=== PATIENT | female | born 1985 | race Caucasian/White ===

== ENCOUNTER 2018-03-26 14:30 | Emergency (ER) | payer BC, MEDICAID ==
[2018-03-26] MEDS ORDERED: Sodium Chloride 0.9% 800 ML IV ONE (15:05)
[2018-03-26] MEDS ORDERED: Sodium Chloride 0.9% 10 ML Syringe FLUSH PRN (15:05)
[2018-03-26] MEDS ORDERED: Sodium Chloride 0.9% 1,000 ML IV ONE (15:05)
[2018-03-26] MEDS ORDERED: Acetaminophen 325 MG Tab PO ONE (15:08)
--- NOTE | 2018-03-26 16:33 | EDM.PDOC ---
ED HPI GENERAL MEDICAL PROBLEM - General Chief Complaint: General Stated Complaint: SENT FROM WALK IN ABNORMAL BLOOD WORK Time Seen by Provider: 03/26/18 15:12 Source of Information: Reports: Patient History Limitations: Reports: No Limitations - History of Present Illness INITIAL COMMENTS - FREE TEXT/NARRATIVE: Patient is a 32-year-old female who was evaluated at the [facility] today with concerns of being septic. She had elevated white blood count, fever, and with orthostatic. She was instructed to come to the ED for further evaluation of fever of unknown etiology. With admission patient states she feels mildly dizzy with standing. This has been present ever since being discharged from the hospital one week ago after delivering a baby. During delivery patient spiked a fever 101.7. She was placed on antibiotics while inpatient and on discharge for 3 days. Her infant spent sometime in the NICU and was discharged home with no concerns. She was found to be anemic during her hospitalization. She's been started on iron supplements. She did suffer a grade 2 tear and states the bleeding has trended downward. No concerning findings noted. She does have some lower abdominal discomfort along the suprapubic region. No change since being discharged home. Denies any chest pain, shortness breath, upper respiratory symptoms, cough, nausea vomiting, nuchal rigidity, foul odor or abnormal discharge from her vagina, or any additional complaints. She has a history of chlamydia and gonorrhea many years ago. She was tested for group B came back negative. 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: Other (see below) Other 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: none Lower Abdomen Pain Score (Numeric/FACES): 1 - Related Data Allergies Allergy/AdvReac Type Severity Reaction Status Date / Time No Known Allergies Allergy Verified 03/26/18 14:52 Home Meds: Home Meds Cephalexin [Keflex] 500 mg PO TID #21 capsule 03/26/18 [Rx] Ferrous Sulfate [Iron] 325 mg PO DAILY 03/26/18 [History] [place]-3/DHA/Epa/Fish Oil [[place] 3 500 Softgel] 1 tab PO DAILY 03/26/18 [History] PNV95/Ferrous Fumarate/FA [ Tablet] 1 tab PO DAILY 03/26/18 [History] Ranitidine [Zantac] 150 mg PO DAILY 03/26/18 [History] Past Medical History Gastrointestinal History: Reports: GERD Genitourinary History: Reports: UTI, Recurrent RESEARCH PHYSICIAN History: Reports: Other (See Below) Other RESEARCH PHYSICIAN History: STD;clamidya,ghonnrhea Social & Family History - Tobacco Use Smoking Status *Q: Never Smoker - Caffeine Use Caffeine Use: Reports: Tea - Recreational Drug Use Recreational Drug Use: No ED ROS GENERAL - Review of Systems Review Of Systems: ROS reveals no pertinent complaints other than HPI. ED EXAM, GENERAL - Physical Exam Exam: See Below Exam Limited By: No Limitations General Appearance: Alert, WD/WN, No Apparent Distress Ears: Hearing Grossly Normal Nose: Normal Inspection Throat/Mouth: Normal Voice, No Airway Compromise Neck: Normal Inspection, Supple Respiratory/Chest: No Respiratory Distress, Lungs Clear, Normal Breath Sounds, No Accessory Muscle Use Cardiovascular: Normal Peripheral Pulses, Regular Rate, Rhythm, No Murmur Peripheral Pulses: 2+: Radial (R) GI/Abdominal: Normal Bowel Sounds, Soft, No Organomegaly, No Distention, Tender (suprapubic region) Rectal (Female) Exam: Normal Exam, Normal Rectal Tone, Heme - Stool Back Exam: Normal Inspection. No: CVA Tenderness (L), CVA Tenderness (R) Extremities: Normal Inspection Neurological: Alert, Oriented, CN II-XII Intact, Normal Cognition, No Motor/ Sensory Deficits Psychiatric: Normal Affect, Normal Mood Skin Exam: Warm, Dry, Intact, Normal Color, No Rash Course - Vital Signs Last Recorded V/S: Last Vital Signs Temp 100.3 F 03/26/18 15:27 Pulse 102 H 03/26/18 14:57 Resp 20 03/26/18 14:57 BP 119/85 03/26/18 14:57 Pulse Ox 98 03/26/18 14:57 - Orders/Labs/Meds Orders: Active Orders 24 hr Category Date Time Status Orthostatic Vital Signs [RC] ASDIRECTED Care 03/26/18 16:43 Active Peripheral IV Care [RC] . DIRECTED Care 03/26/18 15:06 Active CULTURE BLOOD [BC] Stat Lab 03/26/18 15:18 Received CULTURE BLOOD [BC] Stat Lab 03/26/18 15:21 Received CULTURE URINE [RM] Stat Lab 03/26/18 15:25 Received Sodium Chloride 0.9% [Saline Flush] Med 03/26/18 15:05 Active 10 ml FLUSH ASDIRECTED PRN Blood Culture x2 Reflex Set [OM.PC] Stat Oth 03/26/18 15:05 Ordered Peripheral IV Insertion Adult [OM.PC] Routine Oth 03/26/18 15:05 Ordered Medication Orders Sodium Chloride (Saline Flush) 10 ml FLUSH ASDIRECTED PRN PRN Reason: Keep Vein Open Last Admin: 03/26/18 15:27 Dose: 10 ml Labs: Laboratory Tests 03/26/18 03/26/18 03/26/18 Range/Units 15:18 15:18 15:25 WBC 12.37 H (3.98-10.04) K/mm3 RBC 4.42 (3.98-5.22) M/mm3 Hgb 12.3 (11.2-15.7) gm/L Hct 37.5 (34.1-44.9) % MCV 84.8 (79.4-94.8) fl MCH 27.8 (25.6-32.2) pg MCHC 32.8 (32.2-35.5) g/dl RDW Std Deviation 39.8 (36.4-46.3) fL Plt Count 365 (182-369) K/mm3 MPV 9.3 L (9.4-12.3) fl Neutrophils % (Manual) 83 H (40-60) % Band Neutrophils % 1 (0-10) % Lymphocytes % (Manual) 11 L (20-40) % Atypical Lymphs % 0 % Monocytes % (Manual) 4 (2-10) % Eosinophils % (Manual) 1 (0.7-5.8) % Basophils % (Manual) 0 L (0.1-1.2) Toxic Granulation 1+ slight Platelet Estimate Adequate Plt Morphology Comment Normal RBC Morph Comment Normal Sodium 137 (136-145) mEq/L Potassium 3.5 (3.5-5.1) mEq/L Chloride 104 (98-107) mEq/L Carbon Dioxide 25 (21-32) mEq/L Anion Gap 11.5 (5-15) BUN 18 (7-18) mg/dL Creatinine 0.8 (0.55-1.02) mg/dL Est Cr Clr Drug Dosing 94.85 mL/min Estimated GFR (MDRD) > 60 (>60) mL/min BUN/Creatinine Ratio 22.5 H (14-18) Glucose 102 (74-106) mg/dL Calcium 8.5 (8.5-10.1) mg/dL Total Bilirubin 0.2 (0.2-1.0) mg/dL AST 11 L (15-37) U/L ALT 22 (14-59) U/L Alkaline Phosphatase 143 H (46-116) U/L C-Reactive Protein 1.9 H* (<1.0) mg/dL Total Protein 6.8 (6.4-8.2) g/dl Albumin 2.8 L (3.4-5.0) g/dl Globulin 4.0 gm/dL Albumin/Globulin Ratio 0.7 L (1-2) Urine Color Yellow (Yellow) Urine Appearance Clear (Clear) Urine pH 7.0 (5.0-8.0) Ur Specific [place] 1.020 (1.005-1.030) Urine Protein Negative (Negative) Urine Glucose (UA) Negative (Negative) Urine Ketones Negative (Negative) Urine Occult Blood 1+ H (Negative) Urine Nitrite Negative (Negative) Urine Bilirubin Negative (Negative) Urine Urobilinogen 0.2 (0.2-1.0) Ur Leukocyte Esterase 1+ H (Negative) Urine RBC 0-5 (0-5) /hpf Urine WBC 5-10 H (0-5) /hpf Ur Epithelial Cells 0-5 (0-5) /hpf Urine Bacteria Few (FEW) /hpf Urine Mucus Moderate H (FEW) /hpf Meds: Medications Generic Name Dose Route Start Last Admin Trade Name Shay PRN Reason Stop Dose Admin Sodium Chloride 10 ml 03/26/18 15:05 03/26/18 15:27 Saline Flush FLUSH 10 ml ASDIRECTED PRN Administration Keep Vein Open Discontinued Medications Generic Name Dose Route Start Last Admin Trade Name Freq PRN Reason Stop Dose Admin Acetaminophen 650 mg 03/26/18 15:08 03/26/18 15:27 Tylenol PO 03/26/18 15:09 650 mg ONETIME ONE Administration Cephalexin 500 mg 03/26/18 16:36 03/26/18 17:00 Keflex PO 03/26/18 16:37 500 mg ONETIME ONE Administration Sodium Chloride 1,000 mls @ 999 mls/hr 03/26/18 15:05 03/26/18 15:26 Normal Saline IV 03/26/18 16:05 999 mls/hr ONETIME ONE Administration Sodium Chloride 800 mls @ 999 mls/hr 03/26/18 15:05 03/26/18 16:33 Normal Saline IV 03/26/18 15:53 999 mls/hr .BOLUS ONE Administration - Re-Assessments/Exams Free Text/Narrative Re-Assessment/Exam: IV was established with 1.8 L of normal saline IV fluid bolus. Tylenol 650 mg by mouth. Initial labs and studies include: CBC, chem 14, CRP, UA, and blood cultures 2 Hemoglobin was 9.2 today at [place]. Hemoccult test was negative. Labs obtained today reviewed: Sodium 137, potassium 3.5, creatinine 0.8, alk phosphatase 143, CRP mildly elevated at 1.9. White blood count also count 12.37 , hemoglobin normal. N% 83 with no left shift. UA positive for 1+ blood, leukocyte esterase 1+, urine wbc's 5-10, urine mucus moderate. Urine culture has been obtained. Orthostatic vitals on recheck after IVF's. IVF's are in. Patients vitals have improved. She is ready to be discharged home. Departure - Departure Time of Disposition: 16:36 Disposition: Home, Self-Care 01 Condition: Good Clinical Impression: Dehydration UTI (urinary tract infection) Qualifiers: Urinary tract infection type: site unspecified Hematuria presence: with hematuria Qualified Code(s): N39.0 - Urinary tract infection, site not specified Anemia Qualifiers: Anemia type: unspecified type Qualified Code(s): D64.9 - Anemia, unspecified - Discharge Information Prescriptions: Cephalexin [Keflex] 500 mg PO TID #21 capsule Instructions: Antibiotic Medicine, Adult, [id number], Anemia, Dehydration, Adult, [id number], Urinary Tract Infection, Adult Referrals: Marquise Adams MD [Primary Care Provider] - Forms: ED Department Discharge Additional Instructions: Vital signs obtain [facility] indicated you were orthostatic. This means you were volume depleted. Temperature on examination was 100.1. You were administerd almost 2L's of IVF's during evaluation. Blood work obtained today here at the E.D. revealed only slightly elevated WBC. CMP was essentially normal. CRP which is a nonspecific inflammatory marker was elevated. UA indicated +infection. Urine culture was obtained. You were started on keflex. If cultures indicate antibiotic change is indicaed you will be notified. Continue to push the fluids. Utilize tylenol/ibuprofen for the pain. Followup with PCP at conclusion of antibiotic to ensure resolution. Continue to breast feed as normal. - My Orders Last 24 Hours: My Active Orders 03/26/18 15:05 Sodium Chloride 0.9% [Saline Flush] 10 ml FLUSH ASDIRECTED PRN Blood Culture x2 Reflex Set [OM.PC] Stat Peripheral IV Insertion Adult [OM.PC] Routine 03/26/18 15:06 Peripheral IV Care [RC] . DIRECTED 03/26/18 15:18 CULTURE BLOOD [BC] Stat 03/26/18 15:21 CULTURE BLOOD [BC] Stat 03/26/18 15:25 CULTURE URINE [RM] Stat 03/26/18 16:43 Orthostatic Vital Signs [RC] ASDIRECTED - Assessment/Plan Last 24 Hours: My Active Orders 03/26/18 15:05 Sodium Chloride 0.9% [Saline Flush] 10 ml FLUSH ASDIRECTED PRN Blood Culture x2 Reflex Set [OM.PC] Stat Peripheral IV Insertion Adult [OM.PC] Routine 03/26/18 15:06 Peripheral IV Care [RC] . DIRECTED 03/26/18 15:18 CULTURE BLOOD [BC] Stat 03/26/18 15:21 CULTURE BLOOD [BC] Stat 03/26/18 15:25 CULTURE URINE [RM] Stat 03/26/18 16:43 Orthostatic Vital Signs [RC] ASDIRECTED
[2018-03-26] MEDS ORDERED: Cephalexin 500 MG Cap PO ONE (16:36)
== END 2018-03-26 17:56 | disposition home or self-care (01) ==
LOC: SUPCPDRO 14:30 → JD.ED 14:30
DX: N39.0 Urinary tract infection, site not specified (principal); E86.0 Dehydration; D64.9 Anemia, unspecified; Z79.899 Other long term (current) drug therapy
CPT/HCPCS: 36415; 80053; 81001; 85007; 85027; 86140; 87040; 87086; 96360; 96361; 99284; A9270; J7040; J7050